=== PATIENT | male | born 1975 | race Caucasian/White ===

== ENCOUNTER 2019-09-23 11:07 | Emergency (ER) | payer MEDICARE, OTHER ==
[~2019-09-23] VITALS: Ht 198.1 cm; Wt 110.0 kg
[~2019-09-23 11:07] MED LIST: ALBU8.5H8 IH; APIX2.5T PO; HYDR-3720 PO; HYDR-762 PO; METH35.4 TP; NAPR-985 PO; OMEP20CA17 PO; SYMB80120 INH; TEST100V IM
[2019-09-23 11:13] VITALS: BP 150/78; PULSE 89; RESP 18; Ht 198.1 cm; Wt 110.0 kg
== END 2019-09-23 13:27 | disposition home or self-care (01) ==
LOC: FTE 11:07
DX: M77.9 Enthesopathy, unspecified (principal); J45.909 Unspecified asthma, uncomplicated; Z79.01 Long term (current) use of anticoagulants
CPT/HCPCS: 93971